=== PATIENT | female | born 1980 ===

== ENCOUNTER 2018-08-18 05:13 | Inpatient (IN) | payer OTHER ==
[~2018-08-18] VITALS: Ht 170.2 cm; Wt 91.6 kg
[2018-08-18] VITALS (18 sets, daily range): BP systolic 110–141; BP diastolic 55–91
[~2018-08-18 05:13] MED LIST: GLIMEPIRIDE1 MG ORAL; LISINOPRIL20 MG ORAL; METFORMIN HCL1000 M1 ORAL
[2018-08-18] MEDS ORDERED: Zemuron 50mg/5ml Inj IV ONE (06:10)
[2018-08-18] MEDS ORDERED: LR 1000ml 1,000 ML IVLG SCH (06:17)
--- NOTE | 2018-08-18 06:18 | Anethesia Preoperative Eval ---
Anesthesia Pre-op PMH/ROS General Date of Evaluation: August 18, 2018 Time of Evaluation: 07:26 Anesthesiologist: Charmaine ASA Score: ASA 3 Mallampati Score Class I : Soft palate, uvula, fauces, pillars visible Class II: Soft palate, uvula, fauces visible Class III: Soft palate, base of uvula visible Class IV: Only hard plate visible Mallampati Classification: Class II Surgeon: Danilo Diagnosis: Back Pain Surgical Procedure: ALIF L4-5 Anesthesia History: none Family History: no anesthesia problems Allergies: Coded Allergies: No Known Allergies (Unverified , 08/17/18) Medications: see eMAR Patient NPO?: Yes NPO Date: August 17, 2018 NPO Time: 2200 Past Medical History Cardiovascular: Reports: HTN Pulmonary: Reports: ABISAI Endocrine: Reports: DM - FBS 251 Other: obesity - BMI 33 Anesthesia Pre-op Phys. Exam Physician Exam Last Vital Signs Date Time Temp Pulse Resp B/P (MAP) Pulse Ox O2 Delivery O2 Flow Rate FiO2 08/18/18 06:00 98.1 94 18 133/89 (104) 99 Constitutional: NAD Neurologic: CN 2-12 intact Cardiovascular: RRR Respiratory: CTA Gastrointestinal: S/NT/ND Airway Exam Mallampati Score: Class II MO: limited ROM: limited Teeth: missing, intact Anesthesia Pre-op A/P Labs Urine Test Test 08/18/18 05:25 Urine HCG, Qualitative Negative (NEGATIVE) Risk Assessment & Plan Assessment: ASA 3 Plan: GA, SED, GlideScope Go Status Change Before Surgery: No Pre-Antibiotics Dru Grams Ancef IV Given Within 1 Hr of Incision: Yes Time Given: 07:46 Jong Montano MD August 18, 2018 06:18
[2018-08-18] MEDS ORDERED: oxyCODONE HCL/Acetaminophen 5/325mg ORAL PRN (06:30)
[2018-08-18] MEDS ORDERED: DiphenhydrAMINE 50mg/ml Inj IVP PRN (06:30)
[2018-08-18] MEDS ORDERED: fentaNYL 100 mcg/2 mL IV PRN (06:30)
[2018-08-18] MEDS ORDERED: Acetaminophen (Non formulary) 100 ML IV ONE (06:30)
[2018-08-18] MEDS ORDERED: Metoclopramide 10mg/2ml Inj IVP PRN (06:30)
[2018-08-18] MEDS ORDERED: Meperidine 50mg/ml Inj(FOR RIGORS ONLY) IVP PRN (06:30)
[2018-08-18] MEDS ORDERED: Atropine Sulfate 0.4mg/ml inj IVP PRN ×2 (06:30→06:45)
[2018-08-18] MEDS ORDERED: LORazepam Inj 2mg/ml 1ml IV PRN (06:30)
[2018-08-18] MEDS ORDERED: Labetalol 5mg/ml 20ml vial IV PRN (06:30)
[2018-08-18] MEDS ORDERED: Hydromorphone 0.5mg/0.5ml inj IVP PRN (06:30)
[2018-08-18] MEDS ORDERED: Midazolam 2mg/2ml Inj IVP PRN (06:30)
[2018-08-18] MEDS ORDERED: HYDROcodone/Acetamin 5/325 tab ORAL PRN (06:30)
[2018-08-18] MEDS ORDERED: HYDROcodone/Acetamin 7.5/325 tab ORAL PRN (06:30)
[2018-08-18] MEDS ORDERED: Ketorolac 30mg Inj IV PRN ×2 (06:30)
[2018-08-18] MEDS ORDERED: Thrombin 5000 units TOPIC ONE (06:39)
[2018-08-18] MEDS ORDERED: Heparin 5000 units/ml inj ONE (06:39)
[2018-08-18] MEDS ORDERED: Gelfoam Size TOPIC ONE (06:39)
[2018-08-18] MEDS ORDERED: Bacitracin 50000 Units Vial ONE (06:40)
[2018-08-18] MEDS ORDERED: Lidocaine 1% Plain 30 ml INJ ONE ×2 (06:40→06:51)
[2018-08-18] MEDS ORDERED: Ropivacaine 5mg/ml Vial 30ml INJ ONE (06:40)
[2018-08-18] MEDS ORDERED: Lidocaine 1% MPF 10mg/ml 5ml ONE (06:52)
[2018-08-18] MEDS ORDERED: Sodium Chloride 10ml vial INJ ONE (06:52)
[2018-08-18] MEDS ORDERED: ceFAZolin sod 1 GM in NS 55 ML IVPB ONE (07:00)
[2018-08-18] MEDS ORDERED: Dexamethasone 20mg/5ml IVP ONE (07:00)
[2018-08-18] MEDS ORDERED: fentaNYL 100 mcg/2 mL IV ONE (07:01)
--- NOTE | 2018-08-18 07:18 | Immediate Post-Op Evaluation ---
Immediate Post-Op Evalulation Immediate Post-Op Evalulation Procedure: ALIF L4-5 Date of Evaluation: August 18, 2018 Time of Evaluation: 09:57 IV Fluids: 700 LR Blood Products: 0 Estimated Blood Loss: 25 Urinary Output: 0 Blood Pressure Systolic: 110 Blood Pressure Diastolic: 68 Pulse Rate: 97 Respiratory Rate: 16 O2 Sat by Pulse Oximetry: 100 Temperature (Fahrenheit): 98 Pain Score (1-10): 3 Nausea: No Vomiting: No Complications 0 Patient Status: awake, reacts, patent, extubated, none Hydration Status: adequate Dru Grams Ancef IV Given Within 1 Hr of Incision: Yes Time Given: 07:46 Jong Montano MD August 18, 2018 07:18
[2018-08-18] MEDS ORDERED: Sterile Water Irrig 1000ml IRRIG ONE (07:30)
[2018-08-18] MEDS ORDERED: LR 1000ml ONE (07:30)
[2018-08-18] MEDS ORDERED: Propofol 1,000mg/ 100ml btl IV ONE (07:30)
[2018-08-18] MEDS ORDERED: NS Irrig 1000ml ONE (07:30)
[2018-08-18] MEDS ORDERED: Ketamine 500mg Inj ONE (08:27)
[2018-08-18] MEDS ORDERED: Neostigmine 1mg/ml 10ml Inj ONE (09:16)
[2018-08-18] MEDS ORDERED: Glycopyrrolate 0.2mg/ml 1ml Vial ONE (09:16)
--- NOTE | 2018-08-18 09:19 | Pre-Procedure Note/Attestation ---
Pre-Procedure Note/Attestation Complete Prior to Procedure Planned Procedure: not applicable Procedure Narrative: L4-L5 ALIF, anterior plate fixation Indications for Procedure Pre-Operative Diagnosis: Trauma Instability L4-L5 pain Attestation I attest that I discussed the nature of the procedure; its benefits; risks and complications; and alternatives (and the risks and benefits of such alternatives ), prior to the procedure, with the patient (or the patient's legal business process representative). I attest that, if there was a reasonable possibility of needing a blood transfusion, the patient (or the patient's legal business process representative) was given the [facility] standardized written summary, pursuant to the Kevin Saucier Blood Safety Act ([place] Health and Safety Code # 1645, as amended). I attest that I re-evaluated the patient just prior to the surgery and that there has been no change in the patient's H&P, except as documented below: Ryan Carrasco MD August 18, 2018 09:19
--- NOTE | 2018-08-18 09:21 | Brief Operative Note ---
Immediate Post Operative Note Operative Note Pre-op Diagnosis: Trauma Instability L4-L5 pain Procedure: ALIF L4-L5 Anterior internal fixation L4-L5 SSEP osteopromotive material Magnification xray Post-op Diagnosis: same as pre-op Findings: consistent w/pre-op dx studies Surgeon: Danilo CUNHA, Additional Surgeons: Nicanor CUNHA Anesthesiologist: Charmaine CUNHA Anesthesia: general Specimen: yes Complications: none Condition: stable Fluids: anesthesia Estimated Blood Loss: minimal Drains: none Implant(s) used?: Yes Ryan Carrasco MD August 18, 2018 09:21
[2018-08-18] MEDS ORDERED: Naloxone 0.4mg/ml Inj IVP PRN (11:00)
--- NOTE | 2018-08-18 11:30 | NUR ---
NURSE NOTES: Patient was brought up from PACU however report was not given by recovery nurse. Received patient from transporter, sleeping, laying in bed with no signs of distress or other issues at this time. VS: Temp: 98, HR: 106, R: 18, BP: 119/63, O2 Sat: 98% on #3L. surgical dressing dry and intact, ice pack on the incision site. SCDs in place. IV on the right hand gauge#18 ruining LR's. RN will change fluids as indicated by MD. RN called Dr. Sheriff to obtain orders, since pt's blood sugar is 262 and if ok to resume home meds. awaiting for response. RN also called Dr. Carrasco for pain management meds. Awaiting for response. pt's at bed side. call light within reach. bed in lowest position. I will f/u as needed.
--- NOTE | 2018-08-18 12:27 | Diagnostic Imaging Report ---
Indication: Back pain. Technique: 3 intraoperative fluoroscopic images submitted for archival the PACS. Operating surgeon: Danilo Total fluoroscopy time: 11.2 seconds Total fluoroscopy dose: 6.57 mGy Comparison: None Findings: Intraoperative images submitted for archival the PACS. Initial image demonstrates surgical instruments projecting anterior to the lumbar spine at the level of L4-L5. Subsequent images demonstrate fusion at L4-5 with anterior plate, 2 screws at each level as well as interbody disc material. Impression: Fluoroscopic imaging from spinal surgery. Please see operative report.
[2018-08-18] MEDS ORDERED: D5 1/2NS 1,000 ML IV SCH (12:30)
[2018-08-18] MEDS ORDERED: ceFAZolin sod 1 GM in D5W 55 ML IV SCH (15:00)
[2018-08-18] MEDS ORDERED: HYDROcodone/Acetamin 10/325 tab ORAL PRN (15:15)
[2018-08-18] MEDS ORDERED: Hydromorphone 0.5mg/0.5ml inj SUBQ PRN (15:15)
[2018-08-18] MEDS ORDERED: Chloraseptic Spray 20mL Bottle ORAL PRN (16:30)
--- NOTE | 2018-08-18 17:15 | Operative Note - Dictated ---
DATE OF OPERATION: 08/18/2018 VASCULAR SURGEON: Duarte Vick M.D. SPINE SURGEON: Ryan Carrasco M.D. PREOPERATIVE DIAGNOSIS: Lumbar pain. POSTOPERATIVE DIAGNOSIS: Lumbar pain. PROCEDURE PERFORMED: Anterior retroperitoneal exposure of L4-L5 vertebral interspace, left retroperitoneal approach. INDICATIONS: This is a very pleasant woman who was seen prior to surgery in my office. She has been scheduled for anterior spine surgery at L4-L5. She has no prior anterior spine surgery. No history of deep venous thrombosis or bleeding complications described. She was made aware of the risks of vascular surgery including vascular injury, need for blood transfusion, and possible deep venous thrombosis. DESCRIPTION OF FINDINGS: A vertical midline incision was used. A left retroperitoneal approach was used. There was no peritoneal or ureteral violation. There was no vascular injury. Exposure of L4-L5 was obtained by retraction of the left iliac artery and vein towards the patient's right. On completion, the peritoneum and ureter were intact. Iliac vessels were intact. Palpable femoral pedal pulses. BLOOD LOSS: Less than 100 mL. DESCRIPTION OF PROCEDURE: The patient was taken to the operative room. General anesthesia was used. Antibiotics were given. The patient's abdomen was prepped and draped. Appropriate time-out of procedure was taken. A vertical midline incision made infraumbilically. The anterior fascia was incised longitudinally in the midline. A plane was identified posterior to the left rectus abdominis developed posterolaterally to the patient's left. The retroperitoneal space entered below the arcuate line. The peritoneum and ureter mobilized towards the patient's right exposing the left common iliac artery and vein. Dissection was carried lateral to the left common iliac artery and vein. Overlying lymphatics were ligated with vascular clips. The iliolumbar veins identified and triply ligated proximally distally with vascular clips. The L4 segmental artery and vein were also identified and ligated with vascular clips and divided. This allowed us to retract the left iliac artery and vein towards the patient's right exposing the anterior surface of the L4-L5. The Omni retractor blades were set in place. Fluoroscopy was used to confirm the appropriate level. The instrumentation performed L4-L5 dictated separately. On completion, the peritoneum and ureter were intact. Iliac vessels were intact. Anterior fascia was then closed using #1 PDS in a running fashion. The skin and subcutaneous tissue closed with 3-0 Vicryl and 4-0 Monocryl running subcuticular closure technique. Estimated blood loss less than 100 mL. COMPLICATIONS: None. Duarte Vick M.D. DR: LION JOB#: [id number] CC:
--- NOTE | 2018-08-18 17:45 | Operative Note - Dictated ---
DATE OF OPERATION: 08/18/2018 CO-SURGEONS: Ryan Carrasco, Ph.D., M.D., orthopedic spine, specially Duarte Vick M.D. Vascular Surgery. ANESTHESIA: Dr. Charmaine sellers with intubation admitting. 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 OPERATIVE PROCEDURE: 1. Anterior L4-L5 interbody reconstruction, fusion, internal fixation, anterior internal plate fixation. 2. SSEP monitoring. 3. High-powered microscopic dissection. 4. Intraoperative x-rays interpreted by surgeons. 5. Osteopromotive material application. ESTIMATED BLOOD LOSS: Less than 50 mL. COMPLICATIONS: None. POSTOPERATIVE CONDITION: Good/stable. DESCRIPTION OF PROCEDURE: The patient was brought to the operating room and in supine position, general anesthesia with intubation was induced. IV antibiotics, IV Decadron were administered 30 minutes prior to the incision time. Please see separate report of Dr. Vick for anterior exposure, closure, and vascular approach. L4-L5 was identified in AP and lateral planes with fluoroscopic guidance and a spinal needle placed 3 mm disc space. Level marked. Needle removed. Wound irrigated. Annulotomy performed with diskectomy to, but not through the posterior longitudinal ligament. End-plates denuded to bleeding bone. Subchondral bone maintained integrity. SSEP monitoring stable. After appropriate trials, an internal fixation device Aero-L was placed with a combination of fluoroscopic guidance under direct observation. Fit excellent. Interconnecting internal fixation flanges placed. Anterior internal plate fixation compressive mode 25 mm screws. The patient is stable. Wound irrigated and maintained saline. Graft incorporated in fibrin glue. Ryan Carrasco M.D. DR: DEVIN JOB#: [id number] CC:
[2018-08-18] MEDS: HYDROmorphone 1mg/ml Carpuject SUBQ PRN ×2 (18:51→22:08)
--- NOTE | 2018-08-18 19:30 | NUR ---
NURSE NOTES: Received report from MARIZA Martinez and rounds made. Received pt in bed, asleep, no distress noted. IV R hand patent and intact. IV fluid infusing as ordered. Abdominal surgical dressing C/D/I. Safety measures maintained. Bed in lowest position and locked, side rails up x 2, call light within reach. Will continue to monitor.
--- NOTE | 2018-08-18 19:45 | NUR ---
HAND-OFF: Report given to Jose Aleman pt in stable condition. - pt was ambulate to the restroom with staff assistance.
--- NOTE | 2018-08-18 20:31 | Cardiology Progress Note ---
Assessment/Plan Assessment/Plan [id number] Objective Last 24 Hour Vital Signs Date Time Temp Pulse Resp B/P (MAP) Pulse Ox O2 Delivery O2 Flow Rate FiO2 08/18/18 19:21 98.0 08/18/18 19:21 98.0 08/18/18 16:00 98.0 102 16 141/91 (108) 99 08/18/18 14:20 98.3 111 17 116/71 (86) 98 08/18/18 13:20 98.2 103 18 119/71 (87) 98 08/18/18 12:20 98.2 106 17 137/81 (99) 99 08/18/18 11:50 98.0 107 17 118/61 (80) 99 08/18/18 11:30 98.1 82 18 119/63 (81) 99 08/18/18 11:09 97.5 100 18 111/58 99 Nasal Cannula 3 08/18/18 11:00 99 18 116/55 98 Nasal Cannula 3 08/18/18 10:45 98 21 117/61 99 Nasal Cannula 3 08/18/18 10:45 97.6 08/18/18 10:45 97.6 08/18/18 10:35 99 19 119/68 99 Nasal Cannula 3 08/18/18 10:25 95 18 119/65 100 Nasal Cannula 3 08/18/18 10:15 95 17 116/59 100 Simple Mask 6 08/18/18 10:00 96 19 122/71 100 Simple Mask 6 08/18/18 09:55 91 17 117/77 100 Simple Mask 6 08/18/18 09:50 98 18 121/77 100 Simple Mask 6 08/18/18 09:46 97.9 97 16 110/62 100 Simple Mask 6 08/18/18 09:44 97 16 100 08/18/18 06:16 Room Air 08/18/18 06:00 98.1 94 18 133/89 (104) 99 Intake and Output 08/17/18 08/18/18 19:00 07:00 # Voids 1 Laboratory Tests Test 08/18/18 05:25 Urine HCG, Qualitative Negative (NEGATIVE) Jeff Esposito MD August 18, 2018 20:31
[2018-08-18] MEDS: NovoLOG Insulin Flexpen SUBQ SCH (21:16)
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
[2018-08-18] MEDS: ceFAZolin sod 1 GM in NS 55 ML IV SCH (23:05)
[2018-08-19] VITALS: BP 120/69
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
[2018-08-19] MEDS: HYDROmorphone 1mg/ml Carpuject SUBQ PRN ×3 (05:08→20:57)
[2018-08-19] MEDS: NovoLOG Insulin Flexpen SUBQ SCH ×4 (05:57→20:53)
[2018-08-19] MEDS: ceFAZolin sod 1 GM in NS 55 ML IV SCH (06:25)
[2018-08-19 07:15] LABS: BASOPHILS % (AUTO) 0.7 % (0.0-2.0); EOSINOPHILS % (AUTO) 0.4 % (0.0-3.0); HEMATOCRIT 43.4 % (37.0-47.0); HEMOGLOBIN 14.5 G/DL (12.0-16.0); LYMPHOCYTES % (AUTO) 17.9 % (20.0-45.0); MEAN CORPUSCULAR VOLUME 86 FL (80-99); MONOCYTES % (AUTO) 5.9 % (1.0-10.0); NEUTROPHILS % (AUTO) 75.1 % (45.0-75.0); PLATELET COUNT 230 K/UL (150-450); RED BLOOD COUNT 5.02 M/UL (4.20-5.40); RED CELL DISTRIBUTION WIDTH 11.2 % (11.6-14.8); WHITE BLOOD COUNT 14.2 K/UL (4.8-10.8)
--- NOTE | 2018-08-19 07:30 | NUR ---
HAND-OFF: Report given to MARIZA Martinez. Pt in stable condition.
[2018-08-19 07:37] LABS: ALANINE AMINOTRANSFERASE 23 U/L (12-78); ALBUMIN 3.4 G/DL (3.4-5.0); ALKALINE PHOSPHATASE 73 U/L (46-116); ANION GAP 6 mmol/L (5-15); ASPARTATE AMINO TRANSFERASE 13 U/L (15-37); BILIRUBIN,TOTAL 0.9 MG/DL (0.2-1.0); BLOOD UREA NITROGEN 11 mg/dL (7-18); CALCIUM 8.3 MG/DL (8.5-10.1); CARBON DIOXIDE 27 MMOL/L (21-32); CHLORIDE 101 MMOL/L (98-107); CREATININE 0.6 MG/DL (0.55-1.30); POTASSIUM 4.2 MMOL/L (3.5-5.1); SODIUM 134 MMOL/L (136-145)
[2018-08-19 08:00] VITALS: BP 137/88
--- NOTE | 2018-08-19 08:00 | NUR ---
NURSE NOTES: Received report from Jose Aleman pt sleeping in bed a/o x4. with no signs of distress or other issues at this time. surgical dressing dry and intact. IV on the right hand gauge #18 running 1/2NS@125ml/hr. SCD's in place. pt is able to ambulate to the restroom with steady gait and staff assistance. call light within reach. bed in lowest position. side rales up x2. plan: for PT eval today. I will f/u as needed.
--- NOTE | 2018-08-19 09:30 | 48 Hour Post Anesthesia Eval ---
Post Anesthesia Evaluation Procedure: ALIF L4-5 Date of Evaluation: August 19, 2018 Time of Evaluation: 09:29 Blood Pressure Systolic: 134 0: 75 Pulse Rate: 68 Respiratory Rate: 20 Temperature (Fahrenheit): 97.6 O2 Sat by Pulse Oximetry: 98 Airway: patent Nausea: No Vomiting: No Pain Intensity: 3 Hydration Status: adequate Cardiopulmonary Status: stable Mental Status/LOC: patient returned to baseline Follow-up Care/Observations: n/a Post-Anesthesia Complications: none Follow-up care needed: N/A Sohail Cast MD August 19, 2018 09:30
[2018-08-19 12:00] VITALS: BP 145/95
--- NOTE | 2018-08-19 13:19 | NUR ---
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
[2018-08-19 16:00] VITALS: BP 123/83
--- NOTE | 2018-08-19 16:20 | NUR ---
P.T NOTE: LATE ENTRY 5642 P.T EVALUATION COMPLETED AND TREATMENT INITIATED PER SPINAL PROTOCOL. SEE P.T EVALUATION FOR FUNCTIONAL STATUS.
--- NOTE | 2018-08-19 17:15 | Progress Note ---
DATE: 08/19/2018 ACUTE PAIN MANAGEMENT PHYSICIAN PROGRESS NOTE: MEDICATIONS: Medication administration record reviewed. Medications include Tylenol, Mylanta, Soma, Benadryl, Pepcid, [employer], Dilaudid, Zofran, sliding scale insulin, Chloraseptic spray, Phenergan. LABORATORY STUDIES: From this morning are pending. VITAL SIGNS: From this morning are within normal limits. Afebrile, pulse 92, respirations 20, blood pressure 120/69, oxygen saturation 99% on room air. I spent over 60 minutes in consultation today. I saw the patient at the bedside. I discussed the case with the nurse, MARIZA Garcia and the charge nurse, Juan R DAWKINS. The patient was able to ambulate with nursing staff to the restroom overnight. She is voiding urine well. The patient states that she is extremely hungry, although she did have a few episodes of nausea, which were treated well with IV Zofran. The patient is having bowel sounds and is burping. She still is not yet passing gas after her ALIF fusion surgery. Therefore, we will continue her NPO except for sips and medications for now while we await improvement in her bowel function after her anterior abdominal surgery. The patient does have a body mass index of 32, so we have her on an IV fluid rate of 125 mL an hour. With her young age and her ability to void urine well, I will increase the rate to 150 mL for better intravascular rehydration and to avoid postoperative orthostatic hypotension when she ambulates. Hopefully once she starts passing flatus, she will tolerate an advanced diet quickly. The patient already has a supply of [employer] and Soma at home. She responded quite well to the Soma, which I have encouraged the nursing team to administer as tolerated. The patient was having significant right lower extremity pain preoperatively. The patient states these pains have improved somewhat already in the postoperative period. We will see how the patient ambulates with physical therapy training. Incentive spirometer is arranged at the bedside for good pulmonary toilet. The patient does have sequential compression pneumatic devices in place for DVT prophylaxis. The patient's mother did visit yesterday evening for good social support. George Monteengro M.D. DR: SRIDHAR JOB#: [id number] CC:
[2018-08-19] MEDS ORDERED: Magnesium Citrate Liq Btl ORAL ONE (17:30)
[2018-08-19] MEDS: Magnesium Citrate Liq Btl ORAL SCH (17:42)
--- NOTE | 2018-08-19 19:36 | NUR ---
HAND-OFF: Report given to Jose Aleman pt in stable condition.
[2018-08-19 20:00] VITALS: BP 132/85
--- NOTE | 2018-08-19 20:38 | Cardiology Progress Note ---
Assessment/Plan Assessment/Plan 1. Diabetes mellitus with poor long-term control. 2. Postoperative pain. 3. Radiculopathy lumbar. 4. Essential hypertension. 5. Obesity. labs noted bs 158-214 not passed gas or had bm per staff walked only in room IS dvtr ppx pneumatic stocking inplace seems to be comfortable pain is controlled per staff await recovery of bowel function pain management Subjective ROS Limited/Unobtainable: Yes Subjective sleeping Objective Last 24 Hour Vital Signs Date Time Temp Pulse Resp B/P (MAP) Pulse Ox O2 Delivery O2 Flow Rate FiO2 08/19/18 16:00 98.8 101 19 123/83 (96) 98 08/19/18 15:59 98.8 08/19/18 13:34 97.6 08/19/18 12:00 98.2 110 20 145/95 (112) 95 08/19/18 09:30 68 20 98 08/19/18 09:00 Room Air 08/19/18 08:00 98.0 108 20 137/88 (104) 95 08/19/18 04:00 98.3 92 20 08/19/18 00:00 98.1 96 17 120/69 (86) 95 08/18/18 21:00 Room Air General Appearance: no apparent distress Neck: supple Cardiovascular: normal rate, regular rhythm Respiratory/Chest: lungs clear Abdomen: non tender, soft, hypoactive bowel sounds Extremities: no swelling Intake and Output 08/18/18 08/19/18 19:00 07:00 Intake Total 2675 ml 1485 ml Output Total 50 ml Balance 2625 ml 1485 ml IV Total 2675 ml 1485 ml Output Estimated Blood Loss 50 ml # Voids 2 Laboratory Tests Test 08/19/18 06:45 White Blood Count 14.2 K/UL (4.8-10.8) H Red Blood Count 5.02 M/UL (4.20-5.40) Hemoglobin 14.5 G/DL (12.0-16.0) Hematocrit 43.4 % (37.0-47.0) Mean Corpuscular Volume 86 FL (80-99) Mean Corpuscular Hemoglobin 28.9 PG (27.0-31.0) Mean Corpuscular Hemoglobin Concent 33.4 G/DL (32.0-36.0) Red Cell Distribution Width 11.2 % (11.6-14.8) L Platelet Count 230 K/UL (150-450) Mean Platelet Volume 9.5 FL (6.5-10.1) Neutrophils (%) (Auto) 75.1 % (45.0-75.0) H Lymphocytes (%) (Auto) 17.9 % (20.0-45.0) L Monocytes (%) (Auto) 5.9 % (1.0-10.0) Eosinophils (%) (Auto) 0.4 % (0.0-3.0) Basophils (%) (Auto) 0.7 % (0.0-2.0) Sodium Level 134 MMOL/L (136-145) L Potassium Level 4.2 MMOL/L (3.5-5.1) Chloride Level 101 MMOL/L (98-107) Carbon Dioxide Level 27 MMOL/L (21-32) Anion Gap 6 mmol/L (5-15) Blood Urea Nitrogen 11 mg/dL (7-18) Creatinine 0.6 MG/DL (0.55-1.30) Estimat Glomerular Filtration Rate > 60 mL/min (>60) Glucose Level 220 MG/DL (74-106) H Calcium Level 8.3 MG/DL (8.5-10.1) L Total Bilirubin 0.9 MG/DL (0.2-1.0) Aspartate Amino Transf (AST/SGOT) 13 U/L (15-37) L Alanine Aminotransferase (ALT/SGPT) 23 U/L (12-78) Alkaline Phosphatase 73 U/L (46-116) Total Protein 6.9 G/DL (6.4-8.2) Albumin 3.4 G/DL (3.4-5.0) Globulin 3.5 g/dL Albumin/Globulin Ratio 1.0 (1.0-2.7) Microbiology Date/Time Source Procedure Growth Status 08/18/18 05:45 Nasal Nares MRSA Culture - Final NO METHICILLIN RESISTANT STAPH AUREUS... Complete eJff Esposito MD August 19, 2018 20:38
--- NOTE | 2018-08-19 21:30 | NUR ---
NURSE NOTES: Pt tolerated jello without any nausea. Bowel sounds hypoactive on all quarants. Pt denies passing gas, no bowel movement at this time. Will continue to monitor.
[2018-08-20] VITALS: BP 130/82
[2018-08-20] MEDS: Magnesium Citrate Liq Btl ORAL SCH (01:41)
[2018-08-20] MEDS ORDERED: Magnesium Citrate Liq Btl ORAL ONE (01:42)
--- NOTE | 2018-08-20 01:42 | NUR ---
NURSE NOTES: Pt no bowel movement for 8 hours. Magnesium citrate 100ml PO given per MD order. Pt tolerated without any nausea. Will continue to monitor.
[2018-08-20] MEDS: HYDROmorphone 1mg/ml Carpuject SUBQ PRN (01:49)
[2018-08-20 04:00] VITALS: BP 143/97
--- NOTE | 2018-08-20 04:00 | NUR ---
NURSE NOTES: Pt woke up to go to the restroom. Pt states "I farted". Pt ambulated to the restroom, steady gait, voided, safely back in bed, no distress noted. C/o spasm, Soma 350mg PO given.
[2018-08-20] MEDS: NovoLOG Insulin Flexpen SUBQ SCH ×4 (05:54→20:53)
--- NOTE | 2018-08-20 06:18 | NUR ---
NURSE NOTES: Pt vomitted 200cc of liquid brownish color. Phenergan 12.5 IM given. IV fluid resumed per Dr. Montenegro's order. Diet changed to clear liquid.
[2018-08-20] MEDS ORDERED: TransDerm Scop 1mg/72HR Patch TDERMAL ONE (06:30)
--- NOTE | 2018-08-20 07:18 | NUR ---
HAND-OFF: Report given to MARIZA Roberts. Pt in stable condition.
--- NOTE | 2018-08-20 07:29 | NUR ---
NURSE NOTES: Received report from Jose Webster RN. Rounding done with outgoing nurse. Patient asleep. Bed in lowest position, call light within reach. Will continue to monitor.
--- NOTE | 2018-08-20 07:30 | Progress Note ---
DATE: 08/20/2018 ACUTE PAIN MANAGEMENT PHYSICIAN PROGRESS NOTE MEDICATIONS: Medication administration record reviewed. Medications include IV fluids, diabetic sliding scale, Pepcid, Chloraseptic spray, Tylenol, Mylanta, Benadryl, Zofran, Phenergan, [place], Soma, and Dilaudid. LABORATORY STUDIES: From yesterday, August 19, 2018 shows white count 14, hematocrit 43, and platelets 230. Sodium 134, potassium 4.2, chloride 101, bicarb 27, BUN 11, creatinine 0.6, glucose 220, and calcium 8.3. Total bilirubin 0.9. AST 13, ALT 23, and alkaline phosphatase 73. Total protein 6.9. Albumin 3.4. OBJECTIVE: VITAL SIGNS: Shows a T-max at midnight of 99.6, currently afebrile. Pulse 104, respirations 20, blood pressure 143/97, and oxygen saturation 95% on room air. I spent over 60 minutes in consultation today. I saw the patient at the bedside with the nurse RN, , and discussed the case with the charge nurse RN, Maverick and the surgeon, Dr. Carrasco. The patient did start passing positive flatus yesterday. Dr. Carrasco tried to advance her diet. She did tolerate some clear liquids at times. However, she has been having episodes of persistent nausea and recent vomiting. I have asked the nurse to dose the patient with Phenergan to complement the Zofran. Additionally, the patient denies glaucoma symptoms. So, I will add a scopolamine patch. I also will continue her IV fluids for intravascular rehydration. The patient has been sleeping often. She has been moving in and out of bed to the sitting position and to use the rest room. We will continue to increase her ambulation as tolerated. Dr. Esposito, is following the patient's diabetes and medical issues. The patient already has Mckean at home and I will leave a prescription for Soma for outpatient usage. The patient has been using the Dilaudid subcutaneous dosing primarily for analgesia. I will continue the subcutaneous route to lower the risk for further nausea episodes. We will continue supportive care at this time as we still await improvement in her bowel function after her ALIF, anterior lumbar interbody fusion procedure. George Montenegro M.D. DR: SEJAL JOB#: [id number] CC:
[2018-08-20 08:00] VITALS: BP 142/93
--- NOTE | 2018-08-20 10:04 | NUR ---
TREATMENT COUNSELOREARTH AUGER OPERATOR SI:LUMBAR INSTABILITY S/P ALIF L4-5 VS: BP 142/93, P 109, T 99.6, RR 20, SpO2 99 WBC 14.2, Na 134 IS:SCOPOLAMINE 1mg TDERMAL NS x1L IV PHENERGAN 12.5mg ZOFRAN 4mg IVP NOVOLOG SUBQ CARISOPRODOL 350mg DILAUDID 1mg SUBQ MAGNESIUM CITRATE 300ml 3E MED/SURG STATUS
[2018-08-20 12:00] VITALS: BP 137/93
--- NOTE | 2018-08-20 13:27 | NUR ---
NURSE NOTES: No nausea/vomiting noted. Patient stat that she is so hungry. Called Dr. Montenegro and left the message.
--- NOTE | 2018-08-20 13:40 | NUR ---
NURSE NOTES: Dr. Montenegro called and ordered full liquid diet. Noted and carried out.
[2018-08-20 16:04] VITALS: BP 132/95
--- NOTE | 2018-08-20 18:24 | NUR ---
NURSE NOTES: Dr. Montenegro called and ordered soft diet for tomorrow breakfast and regular diet for tomorrow lunch. Noted and carried out.
--- NOTE | 2018-08-20 19:05 | NUR ---
HAND-OFF: Report given to MARIZA Lugo. Patient is stable.
--- NOTE | 2018-08-20 19:45 | Cardiology Progress Note ---
Assessment/Plan Assessment/Plan 1. Diabetes mellitus with poor long-term control. 2. Postoperative pain. 3. Radiculopathy lumbar. 4. Essential hypertension. 5. Obesity. bs 192-206 not passed gas or had bm per staff walked only in room IS dvtr ppx pneumatic stocking inplace seems to be comfortable had faltus no bm pain management onc estart on diet will reeum po med home soon Subjective Cardiovascular: Denies: chest pain, irregular heart rate, lightheadedness, palpitations Respiratory: Denies: SOB with excertion Gastrointestinal/Abdominal: Reports: other - had flatus no bm Genitourinary: Denies: burning Objective Last 24 Hour Vital Signs Date Time Temp Pulse Resp B/P (MAP) Pulse Ox O2 Delivery O2 Flow Rate FiO2 08/20/18 16:04 98.0 107 16 132/95 (107) 99 08/20/18 12:00 98.5 103 16 137/93 (108) 99 08/20/18 09:00 Room Air 08/20/18 08:00 99.1 104 16 142/93 (109) 99 08/20/18 04:00 97.6 104 20 143/97 (112) 95 08/20/18 00:00 99.6 109 20 130/82 (98) 97 08/19/18 21:00 Room Air 08/19/18 20:00 98.2 94 17 132/85 (101) 96 General Appearance: no apparent distress, alert Neck: supple Cardiovascular: normal rate Respiratory/Chest: lungs clear Abdomen: normal bowel sounds Extremities: no swelling Intake and Output 08/19/18 08/20/18 19:00 07:00 Intake Total 500 ml 2010 ml Output Total 200 ml Balance 500 ml 1810 ml Intake Oral 500 ml 360 ml IV Total 1650 ml Output Emesis 200 ml # Voids 3 3 Microbiology Date/Time Source Procedure Growth Status 08/18/18 05:45 Nasal Nares MRSA Culture - Final NO METHICILLIN RESISTANT STAPH AUREUS... Complete Jeff Esposito MD August 20, 2018 19:45
[2018-08-20 20:00] VITALS: BP 121/84
--- NOTE | 2018-08-20 20:30 | NUR ---
NURSE NOTES: Received patient awake in bed, no s/s of acute distress, pt reports mild pain /. IV access asymptomatic currently running IVF 1/2 NS at 150ml/hr. Surgical dressing dry and intact. Fall and safety precautions taken. Patient able to go to bathroom with minimal assist.
[2018-08-21] VITALS: BP 129/84
[2018-08-21 04:00] VITALS: BP 123/84
[2018-08-21] MEDS: NovoLOG Insulin Flexpen SUBQ SCH ×2 (05:53→11:39)
--- NOTE | 2018-08-21 07:15 | Progress Note ---
DATE: 08/21/2018 ACUTE PAIN MANAGEMENT PHYSICIAN PROGRESS NOTE MEDICATIONS: Administration record reviewed. Medications include Phenergan, Chloraseptic spray, diabetic medications including sliding scale insulin, Dilaudid, [place], Pepcid, Benadryl, Soma, Mylanta, and Tylenol. LABORATORY STUDIES: From 08/19/2018 shows white count 14, hematocrit 43, and platelets 230,000. OBJECTIVE: VITAL SIGNS: Within normal limits. Afebrile. Pulse 86, respirations 16, blood pressure 123/84, and oxygen saturation 97% on room air. I spent over 60 minutes in consultation today. I had multiple discussions with the surgeon, Dr. Carrasco. I saw the patient at bedside with the nurse RN, Brittney, from the shift superintendent orthopedic nursing staff. The patient had significant vomiting of large volume fluid yesterday. This resolved and she stated that she was hungry and passing gas. She tolerated advancing diet with clear liquids followed by full liquids. The patient has had no problems and we will try her on soft diet this morning. She did receive 200 cc of magnesium citrate previous today and hopefully with increased walking and advancing diet. Today, she will have a bowel movement. Now, the nausea has resolved. I will place her on Colace b.i.d. I did leave a prescription for Soma for outpatient usage. The patient already has L[place] at home, and lives at home with her to provide good support with activities of daily living. We will await for continued improvement in her bowel function as she will remain in the hospital until she has a bowel movement. She has been ambulating frequently out of bed to the restroom. We have encouraged aggressive incentive spirometer usage for good pulmonary toilet. George Montenegro M.D. DR: SALMA JOB#: [id number] CC:
--- NOTE | 2018-08-21 07:42 | NUR ---
HAND-OFF: Report given to MARIZA Melgoza. Patient eating breakfast, no s/s of acute distress.
--- NOTE | 2018-08-21 07:45 | NUR ---
NURSE NOTES: Received patient in bed, awake, alert and oriented x4. Not in respiratory/cardiac distress. Surgical dressing on low abdomen dry and intact. No bleeding or drainage. Patient complains of mild pain but does not want to take pain meds now, she says " I just want to have breakfast first. I will call you when I need pain medication." Call light within reach. Bed is in lowest position and locked. Patient is tolerating with her food.Will continue plan of care.
[2018-08-21 08:00] VITALS: BP 133/83
[2018-08-21] MEDS ORDERED: D5 1/2NS 1000ml IV ONE (08:50)
[2018-08-21] MEDS ORDERED: 1/2 NS 1000ml IV ONE (08:50)
[2018-08-21] MEDS ORDERED: Docusate 100mg cap ORAL SCH (09:00)
--- NOTE | 2018-08-21 10:50 | NUR ---
NURSE NOTES: Received a call from Dr. Carrasco. RN relayed to doctor that patient hasn't moved her bowel. Per Dr. Carrasco, as soon as she moves her bowel, advance her diet. Patient took docusate this morning.Will continue to monitor.
[2018-08-21 12:00] VITALS: BP 132/88
--- NOTE | 2018-08-21 12:30 | NUR ---
NURSE NOTES: Patient asked Rn to call the doctor stating she wants to be discharged. Dr. Carrasco called back and patient spoke to the patient on the phone.
[2018-08-21] MEDS ORDERED: Fleet's Enema 133ml RECTAL SCH (13:00)
--- NOTE | 2018-08-21 13:20 | NUR ---
CASE MANAGEMENT: REVIEW SI: BACK PAIN . TRAUMA . INSTABILITY L4-L5 PAIN ALIF L4-5 ANTERIOR PLATE FIXATION 08/18 T 98.0 HR 102 RR 20 BP 133/83 SAT 97% ROOM AIR IS: COLACE PO BID NORCO 10/325 PO Q3HR PRN DILAUDID 0.5MG SQ Q3HR PRN MED/SURG STATUS DCP: PATIENT IS FROM HOME
--- NOTE | 2018-08-21 14:10 | NUR ---
NURSE NOTES: Patient discharged to home accompanied by her in stable condition. V/S stable, no s/s of hypo/hyperglycemia. Not in respiratory/cardiac distress. Surgical dressing clean and dry. Discharge instruction given to the patient and patient knows when to seek medical attention and patient has an appointment and she will follow up, instructed patient to monitor surgical site for s/s of infection. Patient knows doctor Marialuisa's phone number. Skin intact, IV and ID were removed. No s/s of infection IV removal site. Staff escorted patient to the car and original prescription given to the patient she will fill the medication form her choice of pharmacy.
--- NOTE | 2018-08-21 14:20 | NUR ---
NURSE NOTES: Fleet enema given and patient had brownish large amount of bowel movement. No blood.Patient wants to be discharged as soon as possible.Will follow up. Addendum: 08/21/18 at 1447 by SHAMA VILLARREAL RN note for 13:20pm
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
== END 2018-08-21 14:10 | disposition home or self-care (01) | DRG 460 ==
LOC: SDSOVERFLO 05:13 → 3E 11:47
PROC: 4A11X4G Monitoring of Peripheral Nervous Electrical Activity, Intraoperative, External Approach (ICD-10-PCS; principal; 2018-08-18 07:00)
PROC: 0ST20ZZ Resection of Lumbar Vertebral Disc, Open Approach (ICD-10-PCS; principal; 2018-08-18 07:00)
PROC: 0SG00A0 Fusion of Lumbar Vertebral Joint with Interbody Fusion Device, Anterior Approach, Anterior Column, Open Approach (ICD-10-PCS; principal; 2018-08-18 07:00)
DX: M53.2X7 Spinal instabilities, lumbosacral region (principal); M54.16 Radiculopathy, lumbar region; E11.9 Type 2 diabetes mellitus without complications; I10 Essential (primary) hypertension; E66.9 Obesity, unspecified; Z68.31 Body mass index [BMI] 31.0-31.9, adult; G89.18 Other acute postprocedural pain; F17.200 Nicotine dependence, unspecified, uncomplicated
CPT/HCPCS: 36415; 72020; 76000; 80053; 81025; 82962; 85025; 86850; 86900; 86901; 87081; 94003; 94150; J1815; J2405; J2710; J2765